=== PATIENT | female | born 1975 | race Two or more races ===

== ENCOUNTER 2025-05-04 14:20 | Emergency (ER) | payer OTHER, MEDICAID ==
[~2025-05-04] VITALS: Ht 172.7 cm; Wt 78.0 kg
[2025-05-04 16:39] LABS: BASOPHILS % 0.3 % (0.0-2.0); EOSINOPHILS % 0.1 % (0.0-5.0); HEMATOCRIT. 30.9 % (36.0-48.0); HEMOGLOBIN. 10.4 g/dL (12.0-16.0); LYMPHOCYTES % 16.1 % (20.0-50.0); MEAN PLATELET VOLUME 8.9 fl (7.4-10.4); MONOCYTES % 11.2 % (2.0-8.0); NEUTROPHILS % 72.3 % (40.0-76.0); PLATELET 195 x1000/uL (130-400); RED BLOOD CELL COUNT 3.09 mill/uL (4.2-5.4); RED CELL DISTRIBUTION WIDTH 12.0 % (11.6-14.6)
[2025-05-04 16:51] LABS: HCG SCREEN NEGATIVE
[2025-05-04 16:52] LABS: CREATININE 0.9 mg/dL (0.6-1.0); UREA NITROGEN BLOOD 10 mg/dL (9-23)
[2025-05-04 16:54] LABS: ASPARTATE AMINOTRANSFERASE 19 IU/L (<34); BILIRUBIN DIRECT 0.3 mg/dL (<=3.0); BILIRUBIN TOTAL 0.6 mg/dL (0.1-1.0); PROTEIN TOTAL 7.1 g/dL (6.0-8.3)
[2025-05-04] MEDS: DIPHENHYDRAMINE 50MG/ML VIAL IV ONE (17:17)
[2025-05-04] MEDS: SODIUM CHLORIDE 0.9% 1,000 ML IV ONE (17:17)
[2025-05-04] MEDS: ONDANSETRON HCL 4MG/2ML INJ IV ONE (17:17)
[2025-05-04] MEDS: ACETAMINOPHEN 325MG TABLET PO ONE (21:01)
[2025-05-04] MEDS: KETOROLAC 15MG/ML VIAL IV ONE (21:01)
[2025-05-04] MEDS: LIDOCAINE 5% PATCH TOP SCH (21:02)
[2025-05-04] MEDS ORDERED: MECL-299 MT (22:03)
[2025-05-04] MEDS ORDERED: ONDA-239 PO (22:03)
[2025-05-04 22:34] VITALS: BP 136/71; PULSE 72; RESP 13; TEMP 36.9; O2SAT 97
== END 2025-05-04 22:32 | disposition home or self-care (01) ==
LOC: ER 14:51
DX: H81.10 Benign paroxysmal vertigo, unspecified ear (principal)
CPT/HCPCS: 99285; 96361; 96374; 96375; 80076; 80048; 84703; 83690; 85025; 36415; J1885; J1200; J2405; J7030